=== PATIENT | female | born 1985 | race Caucasian/White ===

== ENCOUNTER 2017-01-01 13:15 | Emergency (ER) | payer OTHER ==
[~2017-01-01 13:15] MED LIST: Docusate Sodium PO; Hydrocodone/Acetaminophen PO; Ibuprofen PO; birth control pill
[2017-01-01 13:20] VITALS: BP 125/86; PULSE 109; RESP 16; O2SAT 99
[2017-01-01 13:33] VITALS: BP 123/85; PULSE 100; RESP 15; O2SAT 100
[2017-01-01] MEDS ORDERED: Ketorolac 30 mg/mL 2 mL Inj IM ONE (14:00)
--- NOTE | 2017-01-01 14:05 | ED.REPORT ---
HPI-Back Pain Under 40 Date of Service Jan 01, 2017 ED Provider: Percy Bernal PA-C Teena is an otherwise healthy 30-year-old female who presents with chief complaint of low back pain. She reports that the pain has been present for approximately 5 days. She associates it with episode where she lifted her dog into a car. She noted mild low back pain after that that increased to be severe at night. She reports has been steadily increasing since then. She feels she must pace and cannot get comfortable. She locates the pain in her mid to left lower back and describes it as crampy. She was seen in the urgent care yesterday. She was given ketorolac as well as prednisone and methocarbamol. She states that methocarbamol has not reduced the crampy feeling. X-rays from that visit reveal early degenerative changes at L5-S1. Patient states a urinalysis performed yesterday revealed some hematuria. The patient reports an 11 year history of intermittent back pain, but denies a history of kidney stones. Denies numbness, tingling, weakness or pain in lower extremity. Denies fever, DM, HIV, organ transplant, immunosuppression, recent surgery, recent infection, history of back surgery, surgical implants and IV drug use. Denies bowel/bladder dysfunction and saddle anesthesia. Nursing Notes Stated Complaint: LOWER BACK PAIN Chief Complaint: Back Pain or Injury Nursing Notes Reviewed: Yes Allergies: Coded Allergies: No Known Allergies (Verified , 10/01/04) Scheduled ([Docusate Sodium]) 100 MG CAPSULE 100 MG PO BID Cephalexin (Keflex) 500 Mg Capsule 500 MG PO QID Scheduled PRN ([Ibuprofen]) 800 MG TABLET 800 MG PO Q6H PRN PRN For Pain ([Hydrocodone/Acetaminophen]) 1 TAB TABLET 1-2 TAB PO Q4H PRN PRN For Pain Oxycodone (Roxicodone) 5 Mg Tablet 5-10 MG PO Q4H PRN PRN For Pain Miscellaneous Medications ([ control pill]) General Time Seen by MD: 13:29 Chief Complaint Lumbar pain Sudden in Onset?: No Past Medical History Past Medical History Denies Review of Systems General: Denies fever, chills, malaise. HEENT: Denies congestion, headache, sore throat. Respiratory: Denies dyspnea, cough, shortness of breath, wheezing. Cardiovascular: Denies chest pain, palpitations. Gastrointestinal: Denies vomiting, diarrhea, abdominal pain. Genitourinary: Denies frequency, urgency, dysuria, hematuria. Otherwise as noted in HPI. Physical Exam General: Well appearing, well developed, well nourished, moderate distress. Patient is pacing about the examination room, states she cannot get comfortable. Head: Atraumatic, normocephalic. Eyes: No scleral icterus or injection. No discharge. Vision grossly intact. ENT: Voice clear, hearing grossly intact. Respiratory: Regular rate and rhythm. Breath sounds present, clear to auscultation and equal bilaterally. No respiratory distress. No increased work of breathing, speaks in complete sentences. Cardiovascular: Regular rate and rhythm, without murmur, gallop or rub. No pedal edema. Skin: Warm and dry. Back: Normal to inspection, midline spinous process tenderness over L5-S1 and left SI joint. Neurological: Normal gait, toe walk, heel walk, Romberg. Hip flexion, knee extension, ankle dorsiflexion and plantarflexion strength 5/5 B/L. Patellar and Achilles reflexes present and equal B/L. Sensation to sharp touch intact at medial leg, dorsal foot and lateral foot B/L. negative straight leg raise, negative cross straight leg raise. Negative pronator drift. Psychological: Alert and oriented. Speech appropriate, linear and logical. Behavior appropriate. Initial Vital Signs Vital Signs (First) Date Time Temp Pulse Resp B/P Pulse Ox O2 Delivery O2 Flow Rate FiO2 01/01/17 13:20 36.6 109 16 125/86 99 Room Air Initial VS: Reviewed, Vital signs normal (mild tachycardia) Interpretation & Diagnostics Lab Results Interpretation Test 01/01/17 14:30 Urine Color Yellow (YELLOW) Urine Appearance Hazy (CLEAR,HAZY) Urine pH 7.0 (5.0-8.0) Urine Specific [place] 1.015 (1.003-1.035) Urine Protein Negativemg/dL (NEG,TRACE) Urine Glucose (UA) Negativemg/dL (NEGATIVE) Urine Ketones Negativemg/dL (NEGATIVE) Urine Occult Blood Trace (NEGATIVE) Urine Nitrite Negative (NEGATIVE) Urine Bilirubin Negative (NEGATIVE) Urine Urobilinogen Normalmg/dL (NORMAL) Urine Leukocyte Esterase Large (NEGATIVE) Urine RBC 0-2/hpf (0-2) Urine WBC 6-10/hpf (0-5) Urine Epithelial Cells Occasional/hpf (NONE-MOD) Urine Crystals None seen (NONE SEEN) Urine Bacteria Many/hpf (NONE-FEW) Urine Hyaline Casts None/lpf (NONE) Urine Granular Casts None seen (NONE SEEN) Urine Waxy Casts None seen (NONE SEEN) Urine Red Blood Cell Casts None seen (NONE SEEN) Urine White Blood Cell Casts None seen (NONE SEEN) Urine Mucus None seen (None Seen) Urine Trichomonas None seen (NONE SEEN) Urine Yeast None (NONE SEEN) Urinalysis Comment None Urine Culture Reflexed Indicated Re-Eval/Medical Decision Med Decision/Clinical Course Otherwise healthy 31-year-old female with a history of back pain presents with back pain. History is reassuring that this is unlikely to be a subdural hematoma, epidural abscess, cauda equina syndrome, cancer, AAA. X-rays performed yesterday at the urgent care reveal L5-S1 degenerative changes. Examination is consistent with musculoskeletal back pain with no indication of sciatic or neurological impairment. She is afebrile. I believe she is stable and safe for discharge to home. Considered the possibility of pyelonephritis or kidney stones. Urinalysis indicates infection basilar small amount of blood. She has no CVA tenderness I believe this is due to an uncomplicated cystitis. Provided instructions for rest, [id number] analgesia, continue as prescribed prednisone, and provided prescription for a small amount of oxycodone supplement. Provided emergency return precautions and primary care follow-up instructions. Patient understands and agrees with the plan. Discharge & Departure Impression: Primary Impression: Urinary tract infection Urinary tract infection type: acute cystitis Hematuria presence: with hematuria Qualified Code: N30.01 - Acute cystitis with hematuria Additional Impression: Low back pain Chronicity: acute Back pain laterality: left Sciatica presence: without sciatica Qualified Code: M54.5 - Low back pain Disposition: Home All VS Reviewed: Yes Condition: Stable Patient Instructions: Acute Low Back Pain (ED), Urinary Tract Infection in Children (ED) Additional Instructions: Evaluation in the emergency department for lower back pain. History and physical are reassuring for emergent neurological condition such as epidural abscess or cauda equina syndrome. History does not suggest that this is likely to be a spinal fracture. Your neurological examination is normal, indicating there is no damage to the nerves in your back. I see no indication to perform imaging tests at this time. Treatment is largely symptomatic. Rest is important, especially for the next couple of days, but avoid total bed rest. Reasonable activity as tolerated is the best. you may find warm compresses applied to the affected area 3 or 4 times a day helpful. The pain is best treated with 800 mg of ibuprofen (Advil, Motrin) every 6 hours , or 1000 mg of acetaminophen (Tylenol) every 6 hours. These drugs can be taken at the same time for more severe pain. I will provide her with a prescription for a small amount of oxycodone to be taken every 4-6 hours for pain not controlled with the other drugs. Please do not drive or drink alcohol within 4 hours of taking oxycodone. I do not recommend taking your previously prescribed muscle relaxants with oxycodone. Continue taking the prednisone prescribed at urgent care. We also note that you have a urinary tract infection. I will give a prescription for Keflex to be taken 4 times a day for one week. Most of all be patient: 70-90% of people with injuries presenting like yours will resolve within 7 weeks, even without treatment. I will provide her with a referral for primary care follow-up. Please contact them in the next week or two to be sure your recovery is progressing as expected. Return the emergency department for new or worsening symptoms such as loss of bowel/bladder control, numbness between your legs, new weakness/numbness or high fever. Referrals: Rosalinda Arrieta MD EDSupervising Provider for APC: Virgilio Echeverria MD copies to: Rosalinda Arrieta MD, Seth PA-C Jan 01, 2017 14:05
[2017-01-01 14:45] LABS: APPEARANCE,URINE HAZY (CLEAR,HAZY); COLOR,URINE YELLOW (YELLOW); OCCULT BLOOD,URINE TRACE (NEGATIVE); UROBILINOGEN,URINE NORMAL (NORMAL)
[2017-01-01] MEDS ORDERED: CEPH-512 PO (15:41)
[2017-01-01] MEDS ORDERED: OXYC-474 PO (15:41)
[2017-01-01 16:08] VITALS: BP 116/79; PULSE 84
== END 2017-01-01 15:50 | disposition home or self-care (01) ==
LOC: SED 13:15
DX: N30.01 Acute cystitis with hematuria (principal); M54.5 Low back pain; X50.0XXA Overexertion from strenuous movement or load, initial encounter; Y93.89 Activity, other specified; Y92.9 Unspecified place or not applicable; Y99.8 Other external cause status
CPT/HCPCS: 81000; 87086; 87088; 96372; 99284; J1885